=== PATIENT | female | born 1975 | race Caucasian/White ===

== ENCOUNTER 2017-07-14 21:56 | Emergency (ER) | payer BC ==
[~2017-07-14] VITALS: Ht 160 cm; Wt 62.3 kg
[~2017-07-14 21:56] MED LIST: BUSPAR30 MG PO; COMPAZINE10 MG OR; EFFEXOR75 MG PO; FIORICET PO; FIORICET/COD OR; IBUPROFEN800 MG OR; IMITREX25 MG PO; LISINOPRIL30 MG PO; MAXALT-MLT10 MG PO; METOPROL TAR25 M1 PO; PREDNISONE10 MG OR; TOPAMAX50 MG PO; ULTRAM50 M1 PO; VENLAFAXINE HCL75 M1 PO; VITAMIN B-12500 MCG PO; ZYRTEC10 MG PO
[2017-07-14] MEDS ORDERED: IBUPROFEN600 MG PO (23:38)
[2017-07-14 23:54] VITALS: BP 150/92
== END 2017-07-14 23:54 | disposition home or self-care (01) | DRG 558 ==
LOC: ED 21:56
DX: M67.432 Ganglion, left wrist (principal); M35.1 Other overlap syndromes; I10 Essential (primary) hypertension; F17.210 Nicotine dependence, cigarettes, uncomplicated

== ENCOUNTER 2020-01-06 17:00 | Emergency (ER) | payer BC ==
[~2020-01-06 17:00] MED LIST changes: +IBUPROFEN600 MG PO
== END 2020-01-06 17:05 | disposition left against medical advice (07) | DRG 951 ==
LOC: ED 17:00 → LWOBS 17:05
DX: Z53.21 Procedure and treatment not carried out due to patient leaving prior to being seen by health care provider (principal)